=== PATIENT | female | born 1990 | race Two or more races ===

== ENCOUNTER 2024-07-27 06:25 | Emergency (ER) | payer OTHER ==
[~2024-07-27] VITALS: Ht 167.6 cm; Wt 52.2 kg
[2024-07-27] MEDS ORDERED: ALPR1TAB2 PO (06:47)
[2024-07-27] MEDS ORDERED: predniSONE 10 MG TABLET ONE (07:58)
[2024-07-27] MEDS ORDERED: predniSONE 50 MG TABLET ONE (07:58)
[2024-07-27] MEDS: predniSONE 10 MG TABLET PO ONE (08:02)
[2024-07-27 08:06] LABS: BASOPHILS % (AUTO) 0.2 % (0.0-2.0); EOSINOPHILS # (AUTO) 0.7 K/uL (0.0-0.7); EOSINOPHILS % (AUTO) 4.7 % (0.0-7.0); HEMATOCRIT 33.5 % (31.2-41.9); HEMOGLOBIN 10.9 g/dL (10.9-14.3); LYMPHOCYTES # (AUTO) 0.7 K/uL (0.8-4.8); LYMPHOCYTES % (AUTO) 4.8 % (20.5-51.5); MEAN CORPUSCULAR HGB CONC 33 g/dL (32.3-35.6); MEAN CORPUSCULAR VOLUME 82.8 fL (75.5-95.3); MONOCYTES # (AUTO) 0.7 K/uL (0.1-1.30); MONOCYTES % (AUTO) 4.8 % (0.0-11.0); NEUTROPHILS # (AUTO) 12.2 K/uL (1.8-8.9); NEUTROPHILS % (AUTO) 85.5 % (38.5-71.5); PLATELET COUNT (AUTO) 330 K/uL (179-408); RED BLOOD CELL COUNT(AUTO) 4.04 MIL/uL (3.63-4.92); RED CELL DISTRIBUTION WIDTH 12.7 % (12.3-17.7); WHITE BLOOD COUNT (AUTO) 14.3 K/uL (3.8-11.8)
[2024-07-27 08:12] LABS: DIFFERENTIAL COMMENT 1
[2024-07-27 08:16] LABS: CARBON DIOXIDE 25 mmol/L (21-32); CHLORIDE 105 mmol/L (98-107); CREATININE 0.5 mg/dL (0.6-1.3); GLUCOSE 93 mg/dL (74-106); POTASSIUM 4.1 mmol/L (3.5-5.1); SODIUM SERUM 142 mmol/L (136-145); UREA NITROGEN, BLOOD 9 mg/dL (7-18)
[2024-07-27] MEDS ORDERED: IPRATROPIUM BROMIDE 0.5 MG/2.5 ML NEBU ONE (08:23)
[2024-07-27] MEDS ORDERED: ALBUTEROL SULFATE 2.5 MG/3 ML NEBU ONE (08:23)
[2024-07-27] MEDS: ALBUTEROL SULFATE 2.5 MG/3 ML NEBU NEB ONE (08:24)
[2024-07-27] MEDS: IPRATROPIUM BROMIDE 0.5 MG/2.5 ML NEBU NEB ONE (08:24)
[2024-07-27 08:25] VITALS: O2SAT 95
[2024-07-27 08:29] LABS: ALANINE AMINOTRANSFERASE 14 U/L (14-59); ALBUMIN 3.9 g/dL (3.4-5.0); ALKALINE PHOSPHATASE 54 U/L (50-136); ASPARTATE AMINOTRANSFERASE 10 U/L (15-37); BILIRUBIN,DIRECT 0.2 mg/dL (0.0-0.2); BILIRUBIN,TOTAL 0.7 mg/dL (0.2-1.0); NT-PRO BNP 106 pg/mL (0-125)
[2024-07-27] MEDS ORDERED: PRED50TA PO (09:15)
[2024-07-27] MEDS ORDERED: ALBU8.5H8 INH (09:15)
[2024-07-27 09:25] VITALS: O2SAT 99
[2024-07-27 09:53] VITALS: BP 116/76; TEMP 97.7; O2SAT 99
== END 2024-07-27 09:54 | disposition home or self-care (01) ==
LOC: ER 06:37
DX: J45.909 Unspecified asthma, uncomplicated (principal); R07.9 Chest pain, unspecified; F41.9 Anxiety disorder, unspecified; Z79.52 Long term (current) use of systemic steroids; Z88.1 Allergy status to other antibiotic agents
CPT/HCPCS: 99285; 71045; 80076; 80048; 83880; 85025; 84484; 36415; 94644; 93005; J7512 ×2; 94760; A4606; A4663; J3590